=== PATIENT | male | born 1985 | race Caucasian/White ===

== ENCOUNTER 2017-12-21 11:26 | Emergency (ER) | payer MEDICARE ==
[~2017-12-21] VITALS: Ht 185.4 cm; Wt 90.7 kg
[~2017-12-21 11:26] MED LIST: DIVA500EC PO; RISP2 PO
[2017-12-21] MEDS ORDERED: RISP2 PO (11:44)
[2017-12-21] MEDS ORDERED: DIVA500EC PO (11:44)
== END 2017-12-21 11:50 | disposition home or self-care (01) ==
LOC: ER 11:26
DX: Z76.0 Encounter for issue of repeat prescription (principal); G40.909 Epilepsy, unspecified, not intractable, without status epilepticus; Z79.899 Other long term (current) drug therapy; Z87.891 Personal history of nicotine dependence
CPT/HCPCS: 99281

== ENCOUNTER 2023-12-07 15:47 | Emergency (ER) | payer MEDICARE, OTHER ==
[~2023-12-07] VITALS: Ht 182.9 cm; Wt 102.1 kg
[2023-12-07 15:56] VITALS: BP 168/86
[2023-12-07] MEDS ORDERED: ZIPR20 PO (16:01)
[2023-12-07] MEDS ORDERED: DIVA500ER PO (16:01)
[2023-12-07] MEDS ORDERED: ZIPR40 PO (16:53)
== END 2023-12-07 16:58 | disposition home or self-care (01) ==
LOC: ER 15:47
DX: F20.9 Schizophrenia, unspecified (principal); Z79.899 Other long term (current) drug therapy; Z87.891 Personal history of nicotine dependence
CPT/HCPCS: 99284